=== PATIENT | female | born 1940 | race Caucasian/White ===

== ENCOUNTER → 2017-04-07 | Outpatient (CLI) | payer OTHER, MEDICARE ==
[2017-04-07 13:55] LABS: HEMATOCRIT 41.2 % (37-47); MEAN CELL VOLUME 82.9 fL (80-100); MEAN CORPUSCULAR HEMOGLOBIN 29.2 pg (25-34); MEAN CORPUSCULAR HGB CONC 35.2 g/dl (32-36); MEAN PLATELET VOLUME 10.2 fL (7.4-10.4); PLATELET COUNT 266 K/uL (130-400); RED BLOOD COUNT 4.97 M/uL (4.2-5.4); WHITE BLOOD COUNT 6.03 K/uL (4.8-10.8)
[2017-04-07 14:42] LABS: ALT/SGPT 21 U/L (12-78); AST/SGOT 15 U/L (15-37); BLOOD UREA NITROGEN 5 mg/dl (7-18); BUN/CREATININE RATIO 9.8 (10-20); CALCIUM 9.4 mg/dl (8.5-10.1); CARBON DIOXIDE 27 mmol/L (21-32); CHLORIDE 94 mmol/L (98-107); CREATININE 0.54 mg/dl (0.60-1.20); GLUCOSE 102 mg/dl (70-99); POTASSIUM 3.6 mmol/L (3.5-5.1); SODIUM 130 mmol/L (136-145)
[2017-04-07 14:45] LABS: ALB/GLOB RATIO 1.3 (0.9-2); ALKALINE PHOSPHATASE 64 U/L (45-117)
== END | disposition home or self-care (01) ==
LOC: C.LABMFLN 07:09
PROVIDERS: ATTEND Internal Medicine Pulmonary Disease
DX: J45.909 Unspecified asthma, uncomplicated (principal); I10 Essential (primary) hypertension

== ENCOUNTER → 2017-05-21 | Outpatient (CLI) | payer OTHER, MEDICARE ==
[2017-05-21 13:38] LABS: BLOOD UREA NITROGEN 10 mg/dl (7-18); BUN/CREATININE RATIO 19.3 (10-20); CREATININE 0.53 mg/dl (0.60-1.20)
== END | disposition home or self-care (01) ==
LOC: C.LABMFLN 09:07
PROVIDERS: ATTEND Physician Assistant
DX: K86.9 Disease of pancreas, unspecified (principal)

== ENCOUNTER → 2017-07-03 | Outpatient (CLI) | payer OTHER, MEDICARE ==
--- NOTE | 2017-07-03 11:14 | DIAGNOSTIC IMAGING REPORT ---
ABDOMEN LIMITED (US) HISTORY: 76 years-old Female R93.5 low attenuating lesions of the pancreatic head and body seen on comparison CT. COMPARISON: CT 05/18/2017 TECHNIQUE: Multiple real-time sonogram images of the right upper quadrant were obtained assessing grayscale appearance and color flow FINDINGS: There are several cystic-appearing lesions of the pancreas, largest of which is within the pancreatic head, 1.5 x 1.3 x 2.9 cm which appears circumscribed and simple without definite mural nodularity. Additional pancreatic head lesion is seen, 1.0 x 0.8 x 0.9 cm. Within the pancreatic body there is a hypoechoic lesion, 0.8 x 0.6 x 0.6 cm which does not appear to be purely cystic however does not demonstrate internal vascularity. Liver appears unremarkable without definite mass or intrahepatic biliary ductal dilation. Multiple gallstones are seen layering within the gallbladder lumen. No wall thickening or pericholecystic fluid collections. Common bile duct is within normal limits for patient age, 7 mm. 4 mm calculus of the lower pole right kidney without hydronephrosis. IMPRESSION: 1. Cystic-appearing lesions of the pancreas as above, largest of which measures 2.9 cm within the region of the pancreatic head. These lesions are not completely characterized by transabdominal ultrasound and could be further evaluated with MRI. Primary differential consideration would include sidebranch intraductal papillary mucinous neoplasms (IPMN's). 2. Cholelithiasis without sonographic evidence of cholecystitis. 3. No biliary ductal dilation. 4. 4 mm calculus of the right kidney without hydronephrosis. The above report was generated using voice recognition software. It may contain grammatical, syntax or spelling errors. Electronically signed by: Jack Rice M.D. 07/03/2017 11:13 AM Dictated Date/Time: 07/03/2017 11:05 AM
== END | disposition home or self-care (01) ==
LOC: C.ULTR 09:50
PROVIDERS: ATTEND Family Medicine
DX: R93.5 Abnormal findings on diagnostic imaging of other abdominal regions, including retroperitoneum (principal); K80.20 Calculus of gallbladder without cholecystitis without obstruction; N20.0 Calculus of kidney